=== PATIENT | female | born 1965 ===

== ENCOUNTER 2020-03-25 19:02 | Outpatient (REF) | payer BC, SELFPAY ==
[2020-03-29 10:09] LABS: COVID-19 RT-PCR Result NEGATIVE (Negative)
== END 2020-03-25 19:22 ==
LOC: NCHCN 19:02
PROVIDERS: PCP Nurse Practitioner Family; Visit Provider Nurse Practitioner Family
DX: Z11.59 Encounter for screening for other viral diseases (principal)
CPT/HCPCS: U0003

== ENCOUNTER 2020-05-02 14:08 | Outpatient (REF) | payer BC, SELFPAY ==
[2020-05-05 13:22] LABS: COVID-19 RT-PCR Result INVALID (Negative)
== END 2020-05-02 14:28 ==
LOC: NCHCN 14:08
PROVIDERS: PCP Nurse Practitioner Family; Visit Provider Nurse Practitioner Family
DX: Z20.822 Contact with and (suspected) exposure to COVID-19 (principal)
CPT/HCPCS: U0003